=== PATIENT | male | born 1965 | race Caucasian/White ===

== ENCOUNTER 2016-10-06 09:28 | Emergency (ER) | payer MEDICAID ==
[~2016-10-06 09:28] MED LIST: BACTRIM DS1 TAB PO; CIPROFLOXACIN500 MG PO; COL100 PO; LAC PO; LEVAQUIN750 MG PO; MAC100 PO; METHADONE HCL10 MG PO; NOR10T PO; PERCOCET1 TA2 PO; PERCOCET1 TA5 PO; TRAMADOL HCL50 MG PO
[2016-10-06 11:20] LABS: BASOPHIL % 0.4 % (0-2); PLATELET COUNT 371 x10^3mcL (130-400)
[2016-10-06 11:24] LABS: CALCIUM 9.3 mg/dL (8.5-10.1); CARBON DIOXIDE 27.7 mmol/L (21-32); CHLORIDE SERUM 102 mmol/L (98-107); CREATININE SERUM 1.2 mg/dL (0.7-1.3); GFR1 > 60 mL/min; GLUCOSE SERUM 92 mg/dL (74-106); POTASSIUM SERUM 3.6 mmol/L (3.5-5.1); SODIUM SERUM 136 mmol/L (136-145)
[2016-10-06 11:25] LABS: RED CELL DISTRIBUTION WIDTH 14.9 % (11.5-14.5)
[2016-10-06 11:42] LABS: UA SPECIFIC GRAVITY 1.025 (1.005-1.035); microscopic required? YES; urine erythrocyte 3+ (NEGATIVE)
[2016-10-06 15:42] VITALS: BP 128/83
== END 2016-10-06 15:42 | disposition home or self-care (01) ==
LOC: ED 09:28
PROVIDERS: Emergency Medicine
DX: T83.092A Other mechanical complication of nephrostomy catheter, initial encounter (principal); Z88.6 Allergy status to analgesic agent
CPT/HCPCS: 50389; 50394; 50398; C1769; C1884; J2001; J3010; J7040; Q0092; Q9967

== ENCOUNTER 2016-11-18 19:38 | Inpatient (IN) | payer MEDICAID ==
[~2016-11-18] VITALS: Ht 170.2 cm; Wt 80.5 kg
[2016-11-18 21:48] LABS: BASOPHIL % 0.7 % (0-2); PLATELET COUNT 400 x10^3mcL (130-400)
[2016-11-18 21:49] LABS: RED CELL DISTRIBUTION WIDTH 15.2 % (11.5-14.5)
[2016-11-18 21:52] LABS: CALCIUM 9.1 mg/dL (8.5-10.1); CARBON DIOXIDE 26.7 mmol/L (21-32); CHLORIDE SERUM 103 mmol/L (98-107); CREATININE SERUM 1.3 mg/dL (0.7-1.3); GFR1 > 60 mL/min; GLUCOSE SERUM 76 mg/dL (74-106); POTASSIUM SERUM 3.4 mmol/L (3.5-5.1); SODIUM SERUM 139 mmol/L (136-145)
[2016-11-18 21:59] LABS: ALBUMIN 3.5 g/dL (3.4-5.0); ALKALINE PHOSPHATASE 98 U/L (46-116); ALT/SGPT 36 U/L (16-63); AST/SGOT 37 U/L (15-37); BILIRUBIN TOTAL 0.26 mg/dL (0.20-1.00); CHOLESTEROL 158 mg/dL (<200); HDL CHOLESTEROL 49 mg/dL (40-60); PHOSPHOROUS 3.1 mg/dL (2.5-4.9); TOTAL PROTEIN, SERUM 8.6 g/dL (6.4-8.2); URIC ACID 5.9 mg/dL (3.5-7.2)
[2016-11-18 23:29] LABS: MAGNESIUM 2.1 mg/dL (1.8-2.4)
[2016-11-18 23:31] VITALS: BP 137/81
[2016-11-18 23:55] LABS: FREE T4 1.28 ng/dL (0.76-1.46); FREE THYROXINE INDEX 3.8 ug/dL (1.4-4.5); T4(THYROXINE) 12.5 ug/dL (4.7-13.3)
[2016-11-19 00:15] LABS: T3 TOTAL 1.81 ng/mL
[2016-11-19 05:59] LABS: BASOPHIL % 1.1 % (0-2); PLATELET COUNT 346 x10^3mcL (130-400)
[2016-11-19 06:09] VITALS: BP 105/66
[2016-11-19 06:13] LABS: CALCIUM 8.7 mg/dL (8.5-10.1); CARBON DIOXIDE 29.4 mmol/L (21-32); CHLORIDE SERUM 106 mmol/L (98-107); CREATININE SERUM 1.2 mg/dL (0.7-1.3); GFR1 > 60 mL/min; GLUCOSE SERUM 83 mg/dL (74-106); POTASSIUM SERUM 3.9 mmol/L (3.5-5.1); SODIUM SERUM 141 mmol/L (136-145)
[2016-11-19 06:31] LABS: RED CELL DISTRIBUTION WIDTH 16.1 % (11.5-14.5)
[2016-11-19 10:24] VITALS: BP 105/70
[2016-11-19 13:45] VITALS: BP 121/70
[2016-11-19 16:41] LABS: UA SPECIFIC GRAVITY 1.015 (1.005-1.035); microscopic required? YES; urine erythrocyte NEGATIVE (NEGATIVE)
[2016-11-19 17:19] VITALS: BP 112/86
[2016-11-19 17:23] LABS: AMPHETAMINE QUAL UR NONE DETECTED (NEG <=1000)
[2016-11-19 21:00] VITALS: BP 122/68
[2016-11-20 05:39] VITALS: BP 105/70
[2016-11-20 06:28] LABS: BASOPHIL % 0.3 % (0-2); PLATELET COUNT 320 x10^3mcL (130-400)
[2016-11-20 06:34] LABS: CALCIUM 8.7 mg/dL (8.5-10.1); CARBON DIOXIDE 24.2 mmol/L (21-32); CHLORIDE SERUM 105 mmol/L (98-107); CREATININE SERUM 1.1 mg/dL (0.7-1.3); GFR1 > 60 mL/min; GLUCOSE SERUM 88 mg/dL (74-106); MAGNESIUM 1.9 mg/dL (1.8-2.4); PHOSPHOROUS 3.2 mg/dL (2.5-4.9); POTASSIUM SERUM 3.5 mmol/L (3.5-5.1); SODIUM SERUM 138 mmol/L (136-145)
[2016-11-20 06:49] LABS: RED CELL DISTRIBUTION WIDTH 15.2 % (11.5-14.5)
[2016-11-20 09:18] VITALS: BP 102/58
[2016-11-20 13:14] VITALS: BP 106/71
[2016-11-20 17:17] VITALS: BP 105/66
[2016-11-20 21:10] VITALS: BP 118/71
[2016-11-21 02:30] VITALS: BP 121/79
[2016-11-21 05:32] VITALS: BP 117/69
[2016-11-21] MEDS ORDERED: COL100 PO (09:31)
[2016-11-21] MEDS ORDERED: TRAMADOL HCL50 MG PO (09:31)
[2016-11-21] MEDS ORDERED: METHADONE PO (09:31)
[2016-11-21] MEDS ORDERED: LEVAQUIN250 M1 PO (09:37)
[2016-11-21] MEDS ORDERED: LAC PO (09:37)
[2016-11-21 10:10] VITALS: BP 118/73
[2016-11-21 11:17] VITALS: BP 118/73
== END 2016-11-21 11:40 | disposition home or self-care (01) | DRG 466 ==
LOC: ED 19:38 → DU 21:36
PROVIDERS: Emergency Medicine; Radiology Diagnostic Radiology; ADMIT Family Medicine
PROC: 0T25X0Z Change Drainage Device in Kidney, External Approach (ICD-10-PCS; principal; 2016-11-19 15:30)
DX: N99.522 Malfunction of incontinent external stoma of urinary tract (principal); N13.2 Hydronephrosis with renal and ureteral calculous obstruction; R00.1 Bradycardia, unspecified; N39.0 Urinary tract infection, site not specified; E87.6 Hypokalemia; D64.9 Anemia, unspecified; Z68.28 Body mass index [BMI] 28.0-28.9, adult; Z79.891 Long term (current) use of opiate analgesic
CPT/HCPCS: 83880; 84439; C1729; C1769; C1884; C1887; J0696; J2001; J2250; J2270; J3010; J7030; J7040; Q0092; Q9967

== ENCOUNTER 2017-10-27 09:04 | Emergency (ER) | payer MEDICAID ==
[~2017-10-27] VITALS: Ht 170.2 cm; Wt 83.1 kg
[~2017-10-27 09:04] MED LIST changes: +LEVAQUIN250 M1 PO; +METHADONE PO
[2017-10-27 09:14] VITALS: Ht 170.2 cm; Wt 83.1 kg
[2017-10-27 11:23] LABS: CREATININE SERUM 1.2 mg/dL (0.7-1.3)
[2017-10-27 14:18] VITALS: BP 125/88
== END 2017-10-27 14:18 | disposition home or self-care (01) ==
LOC: ED 09:04
PROVIDERS: Emergency Medicine Emergency Medical Services
DX: T83.89XA Other specified complication of genitourinary prosthetic devices, implants and grafts, initial encounter (principal); Z88.8 Allergy status to other drugs, medicaments and biological substances
CPT/HCPCS: 50430; 50435; C1729; C1769; C1884; C1887; J2001; J2250; J3010; J7050; Q9967

== ENCOUNTER 2017-12-23 16:01 | Emergency (ER) | payer MEDICAID ==
[~2017-12-23] VITALS: Ht 170.2 cm; Wt 84.1 kg
[2017-12-23 17:45] VITALS: BP 130/87
== END 2017-12-23 17:30 | disposition home or self-care (01) ==
LOC: ED 16:01
DX: T83.022A Displacement of nephrostomy catheter, initial encounter (principal); R10.9 Unspecified abdominal pain; Z88.6 Allergy status to analgesic agent

== ENCOUNTER 2018-05-12 08:54 | Inpatient (IN) | payer MEDICAID ==
[~2018-05-12] VITALS: Ht 170.2 cm; Wt 85.3 kg
[2018-05-12 09:02] VITALS: Ht 170.2 cm; Wt 85.3 kg
[2018-05-12 19:15] VITALS: BP 118/78
[2018-05-12 22:33] VITALS: BP 124/66
[2018-05-12] MEDS ORDERED: METHADONE PO (22:53)
[2018-05-13 05:56] VITALS: BP 140/83
[2018-05-13 09:55] VITALS: BP 121/78
[2018-05-13 14:02] VITALS: BP 121/78
== END 2018-05-13 15:12 | disposition home or self-care (01) | DRG 466 ==
LOC: ED 08:54 → MU 16:19
PROVIDERS: Radiology Diagnostic Radiology; ADMIT Internal Medicine
PROC: 0T25X0Z Change Drainage Device in Kidney, External Approach (ICD-10-PCS; principal; 2018-05-13 13:30)
DX: N99.522 Malfunction of incontinent external stoma of urinary tract (principal); F11.10 Opioid abuse, uncomplicated; F15.10 Other stimulant abuse, uncomplicated; Z68.29 Body mass index [BMI] 29.0-29.9, adult; F17.210 Nicotine dependence, cigarettes, uncomplicated
CPT/HCPCS: 50389; 50430; 50432; 83880; 84439; C1884; J1170; J2001; J2250; J2270; J2310; J3010; J3490; J7030; Q0092; Q9967

== ENCOUNTER 2018-10-24 08:29 | Emergency (ER) | payer MEDICAID ==
[~2018-10-24] VITALS: Ht 170.2 cm; Wt 80.7 kg
[2018-10-24 08:35] VITALS: Ht 170.2 cm; Wt 80.7 kg
[2018-10-24 09:19] LABS: CALCIUM 9.7 mg/dL (8.5-10.1); CREATININE SERUM 1.5 mg/dL (0.7-1.3); POTASSIUM SERUM 3.8 mmol/L (3.5-5.1)
[2018-10-24 09:24] LABS: ALBUMIN 3.4 g/dL (3.4-5.0); BASOPHIL % 0.1 % (0-2); BILIRUBIN TOTAL 0.8 mg/dL (0.20-1.00)
[2018-10-24 09:27] LABS: TOTAL PROTEIN, SERUM 8.7 g/dL (6.4-8.2)
[2018-10-24 09:38] LABS: PLATELET COUNT 456 x10^3mcL (130-400); RED CELL DISTRIBUTION WIDTH 14.8 % (11.5-14.5)
[2018-10-24 15:48] VITALS: BP 129/76
== END 2018-10-24 15:48 | disposition home or self-care (01) ==
LOC: ED 08:29
PROVIDERS: Emergency Medicine
DX: N99.522 Malfunction of incontinent external stoma of urinary tract (principal); N39.0 Urinary tract infection, site not specified
CPT/HCPCS: 50389; 50430; 50435; C1884; J0696; J1644; J2001; J2270; J2405; J7050; Q9967

== ENCOUNTER → 2018-10-27 | Day surgery (SDC) | payer MEDICAID ==
[~2018-10-27] VITALS: Ht 170.2 cm; Wt 81.3 kg
[2018-10-27 05:45] VITALS: Ht 170.2 cm; Wt 81.3 kg
[2018-10-27 06:52] LABS: BASOPHIL % 0.6 % (0-2)
[2018-10-27 06:55] LABS: PLATELET COUNT 443 x10^3mcL (130-400); RED CELL DISTRIBUTION WIDTH 14.6 % (11.5-14.5)
[2018-10-27 07:04] LABS: CALCIUM 9.6 mg/dL (8.5-10.1); CARBON DIOXIDE 25.1 mmol/L (21-32); CHLORIDE SERUM 103 mmol/L (98-107); CREATININE SERUM 1.3 mg/dL (0.7-1.3); GFR1 > 60 mL/min; GLUCOSE SERUM 108 mg/dL (74-106); POTASSIUM SERUM 3.3 mmol/L (3.5-5.1); SODIUM SERUM 139 mmol/L (136-145)
[2018-10-27 07:08] LABS: ALKALINE PHOSPHATASE 86 U/L (46-116); ALT/SGPT 37 U/L (16-63); AST/SGOT 26 U/L (15-37); BILIRUBIN TOTAL 0.19 mg/dL (0.20-1.00)
[2018-10-27 07:13] LABS: TOTAL PROTEIN, SERUM 8.7 g/dL (6.4-8.2)
[2018-10-27 13:39] VITALS: BP 129/60
== END | disposition home or self-care (01) ==
LOC: ED 05:38 → OR 09:24
PROVIDERS: Emergency Medicine; Radiology Diagnostic Radiology
PROC: BT12YZZ Fluoroscopy of Left Kidney using Other Contrast (ICD-10-PCS; 2018-10-27)
PROC: 05HA33Z Insertion of Infusion Device into Left Brachial Vein, Percutaneous Approach (ICD-10-PCS; 2018-10-27)
PROC: B54NZZA Ultrasonography of Left Upper Extremity Veins, Guidance (ICD-10-PCS; 2018-10-27)
PROC: 0T25X0Z Change Drainage Device in Kidney, External Approach (ICD-10-PCS; principal; 2018-10-27 12:15)
DX: T83.022A Displacement of nephrostomy catheter, initial encounter (principal); N13.1 Hydronephrosis with ureteral stricture, not elsewhere classified; Z87.442 Personal history of urinary calculi; Y73.2 Prosthetic and other implants, materials and accessory gastroenterology and urology devices associated with adverse incidents; Y92.009 Unspecified place in unspecified non-institutional (private) residence as the place of occurrence of the external cause
CPT/HCPCS: 50432; C1729; C1769; C1884; J0690; J1644; J2001; J2250; J2310; J3010; J3490; J7040; Q0092; Q9967

== ENCOUNTER 2019-05-07 14:30 | Emergency (ER) | payer MEDICAID | END 2019-05-07 14:58 | disposition left against medical advice (07) | LOC: ED 14:30 | DX: Z53.21 Procedure and treatment not carried out due to patient leaving prior to being seen by health care provider (principal) ==

== ENCOUNTER 2019-06-01 11:05 | Emergency (ER) | payer MEDICAID ==
[~2019-06-01] VITALS: Ht 170.2 cm; Wt 85.7 kg
[2019-06-01 11:39] VITALS: Ht 170.2 cm; Wt 85.7 kg
[2019-06-01 12:33] LABS: UA SPECIFIC GRAVITY >=1.030 (1.005-1.035); microscopic required? YES; urine erythrocyte 1+ (NEGATIVE)
[2019-06-01 12:50] LABS: BASOPHIL % 0.6 % (0-2); PLATELET COUNT 321 x10^3mcL (130-400)
[2019-06-01 12:52] LABS: RED CELL DISTRIBUTION WIDTH 14.6 % (11.5-14.5)
[2019-06-01 13:36] LABS: ALBUMIN 3.3 g/dL (3.4-5.0); ALKALINE PHOSPHATASE 97 U/L (46-116); ALT/SGPT 51 U/L (16-63); AST/SGOT 39 U/L (15-37); BILIRUBIN TOTAL 0.4 mg/dL (0.20-1.00); CALCIUM 9.1 mg/dL (8.5-10.1); CARBON DIOXIDE 27.7 mmol/L (21-32); CHLORIDE SERUM 105 mmol/L (98-107); CREATININE SERUM 1.3 mg/dL (0.7-1.3); GFR1 > 60 mL/min; GLUCOSE SERUM 91 mg/dL (74-106); POTASSIUM SERUM 3.8 mmol/L (3.5-5.1); SODIUM SERUM 139 mmol/L (136-145)
[2019-06-01 15:30] VITALS: BP 131/74
== END 2019-06-01 15:30 | disposition home or self-care (01) ==
LOC: ED 11:05
PROVIDERS: Specialist
DX: N99.522 Malfunction of incontinent external stoma of urinary tract (principal); Z98.890 Other specified postprocedural states; Z88.6 Allergy status to analgesic agent
CPT/HCPCS: 36415; 50389; 50430; C1884; J2001; J2270; J7040; Q0162; Q9967

== ENCOUNTER 2019-12-25 10:58 | Emergency (ER) | payer MEDICAID ==
[~2019-12-25] VITALS: Ht 170.2 cm; Wt 89.4 kg
[2019-12-25 11:07] VITALS: Ht 170.2 cm; Wt 89.4 kg
[2019-12-25 13:21] LABS: BASOPHIL % 0.6 % (0-2); PLATELET COUNT 250 x10^3mcL (130-400); RED CELL DISTRIBUTION WIDTH 14.5 % (11.5-14.5)
[2019-12-25 14:10] LABS: ALBUMIN 3.5 g/dL (3.4-5.0); ALKALINE PHOSPHATASE 98 U/L (46-116); ALT/SGPT 69 U/L (16-63); AST/SGOT 61 U/L (15-37); BILIRUBIN TOTAL 0.4 mg/dL (0.20-1.00); CALCIUM 8.8 mg/dL (8.5-10.1); CARBON DIOXIDE 31.3 mmol/L (21-32); CHLORIDE SERUM 103 mmol/L (98-107); GFR1 > 60 mL/min; GLUCOSE SERUM 64 mg/dL (74-106); POTASSIUM SERUM 3.7 mmol/L (3.5-5.1); SODIUM SERUM 139 mmol/L (136-145)
[2019-12-25 14:11] LABS: TOTAL PROTEIN, SERUM 8.3 g/dL (6.4-8.2)
[2019-12-25 14:40] VITALS: BP 127/84
== END 2019-12-25 14:40 | disposition home or self-care (01) ==
LOC: ED 10:58
PROVIDERS: Emergency Medicine
DX: M79.605 Pain in left leg (principal); N99.522 Malfunction of incontinent external stoma of urinary tract
CPT/HCPCS: J0696; J2405; J3010; J7030; Q0092

== ENCOUNTER 2019-12-26 08:52 | Emergency (ER) | payer MEDICAID ==
[~2019-12-26] VITALS: Ht 170.2 cm; Wt 86.6 kg
[2019-12-26 08:57] VITALS: Ht 170.2 cm; Wt 86.6 kg
[2019-12-26 14:21] VITALS: BP 148/87
== END 2019-12-26 15:13 | disposition home or self-care (01) ==
LOC: ED 08:52
DX: T83.092A Other mechanical complication of nephrostomy catheter, initial encounter (principal); Z88.6 Allergy status to analgesic agent
CPT/HCPCS: 50435; C1729; C1769; C1884; J2001; J7040; Q9967

== ENCOUNTER 2020-05-21 09:32 | Emergency (ER) | payer MEDICAID ==
[~2020-05-21] VITALS: Ht 170.2 cm; Wt 83.9 kg
[2020-05-21 10:09] VITALS: BP 142/93; Ht 170.2 cm; Wt 83.9 kg
[2020-05-23] MEDS ORDERED: PERCOCET1 TA5 PO (17:12)
== END 2020-05-21 14:37 | disposition left against medical advice (07) ==
LOC: ED 09:32
DX: N99.522 Malfunction of incontinent external stoma of urinary tract (principal); Z88.6 Allergy status to analgesic agent